=== PATIENT | female | born 1990 | race Caucasian/White ===

== ENCOUNTER 2017-03-04 08:04 | Emergency (ER) | payer BC ==
[2017-03-04] MEDS ORDERED: Albuterol/Ipratropium NEB.SOL* Albuterol 2.5 MG/Ipratropium 0.5 MG 3 ML INH ONE (09:17)
--- NOTE | 2017-03-04 09:37 | ED ---
Respiratory - HPI Summary HPI Summary: 26 female presents with complaints of having episodes of shortness of breath that have been ongoing for the past 6 months and have been becoming more frequent. Patient has seen her primary several times with the same complaints who she states he just tells her 'it is allergies and her weight". Patient has been using bronchaid and has also tried claritin D. These medication do help her however they do not resolve or prevent these attacks. Patient had asthma when she was a child. She is upset with her PCP because she has not had the work up for these episodes. She states the episodes can last all day where she feels that "it is building up to become really bad". Last episode was last night where she could not catch her breath and her chest felt very tight. She states it is difficulty to move air when these episodes occur. She admits to allergies, eczema and anxiety. She states these episodes feel different than her anxiety/panic attacks. Admits to dizziness, nausea, lightheadedness and chest wall pain on the right side during these episodes. She is a former tobacco user, quit 1 year ago. History of 7 years, 1/2 ppd. Denies any other PMHx. Admits to a dry constant nonproductive cough and wheezing. She denies fever/chills. She does not feel she is having one of these episodes at this time. She has not related the episodes to exertion. Denies chest pain at this time. No recent travel, bed rest and not taking OCPs. - History of Current Complaint Chief Complaint: EDUpperRespComplaint Stated Complaint: DIFF BREATHING Time Seen by Provider: 03/04/17 08:45 Hx Obtained From: Patient Onset/Duration: Gradual Onset - that worsens, Resolved Timing: Intermittent Episodes Lasting: - varying lengths Initial Severity: Severe Current Severity: None Pain Intensity: 0 Character: Wheezing, Cough (Nonproductive), Dyspnea at Rest, Dyspnea on Exertion Sputum Amount: None Aggravating Factor(s): URI, Allergens, Recumbent Position Alleviating Factor(s): OTC Medications - "Bronchaid" Associated Signs and Symptoms: SOB, Wheezing, Chest Pain with Cough, Nasal Congestion, Dizziness, Pleuritic Chest Pain - Risk Factors Status Asthmaticus Risk Factors: Negative Pulmonary Embolism Risk Factors: Negative Cardiac Risk Factors: Negative - Allergy/Home Medications Allergies/Adverse Reactions: Allergies Allergy/AdvReac Type Severity Reaction Status Date / Time No Known Allergies Allergy Verified 03/04/17 08:12 Home Medications: Home Medications Bronchial Asthma Relief 12.5-200 mg 1 tab PO PRN 03/04/17 [History] Loratadine [Claritin 10 MG CAP] 10 mg PO DAILY 03/04/17 [History Confirmed 03/04] PMH/Surg Hx/FS Hx/Imm Hx Endocrine/Hematology History: Denies: Hx Diabetes Cardiovascular History: Denies: Hx Hypertension Respiratory History: Reports: Hx Asthma - when a child, Hx Seasonal Allergies - Surgical History Surgery Procedure, Year, and Place: none - Immunization History Immunizations Up to Date: Yes Infectious Disease History: No Infectious Disease History: Denies: Traveled Outside the [place] in Last 30 Days - Family History Known Family History: Positive: None - Social History Alcohol Use: Occasionally Substance Use Type: Reports: None Smoking Status (MU): Former Smoker Review of Systems Constitutional: Negative Eyes: Negative Positive: Epistaxis, Nasal Discharge Positive: Chest Pain - pleuritc, with coughing Positive: Shortness Of Breath, Cough Positive: Nausea Genitourinary: Negative Skin: Negative Neurological: Negative Positive: Anxious All Other Systems Reviewed And Are Negative: Yes Physical Exam Triage Information Reviewed: Yes Vital Signs On Initial Exam: Initial Vitals Temp Pulse Resp BP Pulse Ox 99.5 F 79 18 137/82 98 03/04/17 08:05 03/04/17 08:05 03/04/17 08:05 03/04/17 08:05 03/04/17 08:05 patient appeared anxious- elevated BP noted, was re-checked and in normal range. No hypoxic. Vital Signs Reviewed: Yes Appearance: Positive: Well-Appearing, No Pain Distress, Well-Nourished Skin: Positive: Warm, Skin Color Reflects Adequate Perfusion, Dry. Negative: Cold, Numb, Cyanosis @, Diaphoretic Head/Face: Positive: Normal Head/Face Inspection Eyes: Positive: Normal, EOMI, CRISTIANO, Conjunctiva Clear ENT: Positive: Normal ENT inspection, Hearing grossly normal, Pharynx normal, TMs normal. Negative: Pharyngeal erythema, Nasal congestion, Nasal drainage, Tonsillar swelling, Tonsillar exudate, Trismus, Muffled/hoarse voice Dental: Negative: Cervical Lymphadenopathy Neck: Positive: Supple, Nontender, No Lymphadenopathy Respiratory/Lung Sounds: Positive: Clear to Auscultation, Breath Sounds Present , Decreased Breath Sounds - throughout, difficult to hear, possibly due to patients attempt at taking deep breaths, Wheezes - left side. Negative: Rales, Rhonchi, Stridor, Unable to speak in full sentences, Fatigue Cardiovascular: Positive: Normal, RRR, Pulses are Symmetrical in both Upper and Lower Extremities. Negative: Leg Edema Left, Leg Edema Right Abdomen Description: Positive: Nontender, Soft Bowel Sounds: Positive: Present Musculoskeletal: Positive: Normal, Strength/ROM Intact Neurological: Positive: Normal, Sensory/Motor Intact, Alert, Oriented to Person Place, Time, CN Intact II-III, Reflexes Intact, NV Bundle Intact Distally, Normal Gait, Finger to Nose - normal, Facial Symmetry, Speech Normal Psychiatric: Positive: Normal, Affect/Mood Appropriate, Anxious - appeared anxious, has history of anxiety AVPU Assessment: Alert Diagnostics - Vital Signs Vital Signs Temp Pulse Resp BP Pulse Ox 03/04/17 08:42 20 03/04/17 08:10 97.8 F 79 18 137/82 98 03/04/17 08:05 99.5 F 79 18 137/82 98 - Laboratory Lab Statement: Any lab studies that have been ordered have been reviewed, and results considered in the medical decision making process. - Radiology chest x-ray Xray Interpretation: No Acute Changes - Heart is normal size and configuration. Lung chamorro are clear. Calcified lymph nodes are noted in the right hilum. No active cardiopulmonary disease is noted. Radiology Interpretation Completed By: Radiologist Re-Evaluation - Re-Evaluation First Eval Re-Evaluation Time: 10:15 Change: Improved - had relief after duoneb administration, no wheezing appreciated. Disposition - Course Course Of Treatment: chest x-ray and duoneb administered. Patient appears to be suffering from a chronic issue. No current chest pain or discomfort. Had EKG at [facility] and was sinus tachycardia. Possibly experiencing symptoms due to asthma, anxiety, allergies or combination of all. She was concerned with cancer due to her use of tobacco history. Chest x-ray negative. Vitals normal. No fever, not hypoxic. No concern for any emergent etiology such as infection, PE or cardiac issue due to PE and HPI findings- no further work up required at this time. Will be d/c with referral, and albuterol inhaler. Does not have nebulizer machine at home, unable to give medication for. Continue daily antihistamine, recommended Xyzal. Follow up PCP. Referral to asthma and [facility]. - Differential Dx - Cardiopulmonary Differential Diagnoses - Cardiopulmonary: Asthma, Bronchitis, Chest Wall Pain, Influenza, Lower Resp Infection, Pneumothorax, Pulmonary Edema, Pulmonary Embolism, Other - Diagnoses Provider Diagnoses: SOB (shortness of breath), Asthma, Bronchospasm, Seasonal allergies Discharge - Discharge Plan Condition: Stable Disposition: HOME Prescriptions: Albuterol HFA INHALER* [Ventolin HFA Inhaler*] 1 - 2 puff INH Q4H PRN #1 mdi PRN Reason: Sob/Wheezing Patient Education Materials: Asthma (ED), Bronchospasm (ED) Referrals: [facility] [[facility]] Ricardo Burns MD [Medical Doctor] - Additional Instructions: Use prescribed inhaler as directed to help prevent episodes of shortness of breath. Recommend taking Xyzal antihistamine daily to help with allergies. You can also use Flonase for nasal congestion. Make an appointment with [facility] for further work up and evaluation. If symptoms worsen or new symptoms develop please return to ER. Follow up with PCP, a attached the number below to find a new PCP.
--- NOTE | 2017-03-04 09:59 | RAD ---
Indication: Shortness of breath. 2 views of the chest including dual energy PA views demonstrate no mediastinal shift. Heart is normal size and configuration. Lung chamorro are clear. Calcified lymph nodes are noted in the right hilum. IMPRESSION: No active cardiopulmonary disease is noted.
[2017-03-04 10:29] LABS: UR Preg Internal Control QC Line Present
[2017-03-04 10:30] LABS: Manual Entry Verification HAN0055
[2017-03-04 10:36] VITALS: BP 131/75
== END 2017-03-04 10:36 | disposition home or self-care (01) ==
LOC: ED 08:04
DX: R06.02 Shortness of breath (principal); J45.909 Unspecified asthma, uncomplicated; J30.2 Other seasonal allergic rhinitis; Z32.02 Encounter for pregnancy test, result negative; Z87.891 Personal history of nicotine dependence
CPT/HCPCS: 71020; 81025; 94640; 99282; A9270-GY